=== PATIENT | female | born 1985 | race American Indian/Alaskan Native ===

== ENCOUNTER 2017-06-25 22:52 | Emergency (ER) | payer SELFPAY ==
[2017-06-25 23:22] VITALS: BMI 43.5
[2017-06-25 23:33] VITALS: RESP 18
[2017-06-26] MEDS ORDERED: Oxycodone/Acetaminophen 5/325 mg Tab PO STA (00:03)
--- NOTE | 2017-06-26 00:17 | ED PDOC ---
Arrival/HPI - General Chief Complaint: Back Pain Time Seen by Provider: 06/25/17 23:02 Historian: Patient - History of Present Illness Narrative History of Present Illness (Text): 06/26/17 00:01 31 year old female, whose past medical history includes spinal anesthesia c- section for both her 2 year old and 11 year old children that caused back problems for the past 24 months and also lost feeling on left leg for the last 11 months, presents to the emergency department complaining of worsening pain and states she could not function anymore. Patient said it was due to the spinal anesthesia and was told the feeling would come back which it did not. Patient denies any fever, chills, chest pain, shortness of breath, nausea, vomiting, diarrhea, urinary symptoms, back pain, neck pain, headache, dizziness, or any other complaints. Symptom Onset: Gradual Symptom Course: Worsening Activities at Onset: Light Context: Home Past Medical History - Provider Review Nursing Documentation Reviewed: Yes - Infectious Disease Hx of Infectious Diseases: None - Psychiatric Hx Substance Use: No - Surgical History Hx Section: Yes (5) Family/Social History - Physician Review Nursing Documentation Reviewed: Yes Smoking Status: Never Smoked Hx Alcohol Use: No Hx Substance Use: No Allergies/Home Meds Allergies/Adverse Reactions: Allergies No Known Allergies Allergy (Verified 06/25/17 23:53) Review of Systems - Physician Review All systems were reviewed & negative as marked: Yes - Review of Systems Constitutional: absent: Fevers, Other Respiratory: absent: SOB Cardiovascular: absent: Chest Pain Gastrointestinal: absent: Diarrhea, Nausea, Vomiting Genitourinary Female: absent: Dysuria, Frequency, Hematuria Musculoskeletal: Back Pain, Other (left leg numbness ). absent: Neck Pain Neurological: absent: Headache, Dizziness Physical Exam Vital Signs Reviewed: Yes Vital Signs Temp Pulse Resp BP Pulse Ox 06/25/17 23:28 97.9 F 73 18 127/85 98 Temperature: Afebrile Blood Pressure: Normal Pulse: Regular Respiratory Rate: Normal Appearance: Positive for: Well-Appearing, Non-Toxic, Comfortable Pain Distress: None Mental Status: Positive for: Alert and Oriented X 3 - Systems Exam Head: Present: Atraumatic, Normocephalic Pupils: Present: PERRL Extroacular Muscles: Present: EOMI Conjunctiva: Present: Normal Mouth: Present: Moist Mucous Membranes Neck: Present: Normal Range of Motion Respiratory/Chest: Present: Clear to Auscultation, Good Air Exchange. No: Respiratory Distress, Accessory Muscle Use Cardiovascular: Present: Regular Rate and Rhythm, Normal S1, S2. No: Murmurs Abdomen: No: Tenderness, Distention, Peritoneal Signs Back: Present: Paraspinal Tenderness (Tenderness to the paraspinal musculature) , Other (Tenderness to the saiactic notch on the both sides) Upper Extremity: Present: Normal Inspection. No: Cyanosis, Edema Lower Extremity: Present: Normal Inspection. No: Edema Neurological: Present: GCS=15, CN II-XII Intact, Speech Normal Skin: Present: Warm, Dry, Normal Color. No: Rashes Psychiatric: Present: Alert, Oriented x 3, Normal Insight, Normal Concentration Medical Decision Making ED Course and Treatment: 06/26/17 00:02 Impression: 32 year old female presents complaining of pain to the back for the past 24 months and loss of feeling to the left leg for 11 months. Patient past medical history includes spinal anaesthesia . Plan: -- CT Lumbar spine -- Flexeril, Percocet, Zofran -- Urine Test -- Urinalysis -- Reassess and disposition Progress Notes: EXAM: CT Lumbar Spine Without Intravenous Contrast Dictated and Authenticated by: Gerardo Yadav MD 06/26/2017 1:56 AM MPRESSION: 1. No fracture. 2. If back pain persists, consider MRI for further evaluation. 3. Incidental/non-acute findings are described above. - Lab Interpretations Lab Results: Lab Results 06/26/17 00:45: Urine Color Yellow, Urine Appearance Clear, Urine pH 6.0, Ur Specific [place] >= 1.030, Urine Protein Trace H, Urine Glucose (UA) Negative, Urine Ketones Negative, Urine Blood Negative, Urine Nitrate Negative, Urine Bilirubin Negative, Urine Urobilinogen 0.2, Ur Leukocyte Esterase Negative, Urine RBC 0 - 2, Urine WBC 0 - 2, Ur Epithelial Cells 1 - 3, Urine Bacteria Rare I have reviewed the lab results: Yes - RAD Interpretation Radiology Orders: 06/26/17 00:01 LUMBAR SPINE W/O CONTRAST [CT] Stat - Medication Orders Current Medication Orders: Discontinued Medications Cyclobenzaprine HCl (Flexeril) 10 mg PO STAT STA Stop: 06/26/17 00:04 Last Admin: 06/26/17 00:49 Dose: 10 mg Ondansetron HCl (Zofran Odt) 4 mg PO STAT STA Stop: 06/26/17 00:04 Last Admin: 06/26/17 00:49 Dose: 4 mg Oxycodone/Acetaminophen (Percocet 5/325 Mg Tab) 2 tab PO STAT STA Stop: 06/26/17 00:04 Last Admin: 06/26/17 00:48 Dose: [address] [facility] Pain Assessment Document 06/26/17 00:48 LA (Rec: 06/26/17 00:49 LA [id number]) Pain Reassessment Is this a pain reassessment? No Sleep Is patient sleeping during reassessment? No Presence of Pain Presence of Pain Yes Pain Scale Used Pain Scale Used Numeric Location Pain Location Body Site Back Description Intensity of Pain at present 8 Re-Assess: [facility] Pain Assessment Document 06/26/17 01:48 LA (Rec: 06/26/17 02:43 LA [id number]) Pain Reassessment Is this a pain reassessment? Yes Sleep Is patient sleeping during reassessment? Yes - Scribe Statement The provider has reviewed the documentation as recorded by the Sourav Juarez Provider Scribe Attestation: All medical record entries made by the Leonardibfrankie were at my direction and personally dictated by me. I have reviewed the chart and agree that the record accurately reflects my personal performance of the history, physical exam, medical decision making, and the department course for this patient. I have also personally directed, reviewed, and agree with the discharge instructions and disposition. Disposition/Present on Arrival - Present on Arrival Any Indicators Present on Arrival: No History of DVT/PE: No History of Uncontrolled Diabetes: No Urinary Catheter: No History of Decub. Ulcer: No History Surgical Site Infection Following: None - Disposition Have Diagnosis and Disposition been Completed?: Yes Diagnosis: Lumbar radiculopathy Disposition Time: 02:55 Patient Plan: Discharge Patient Problems: Current Active Problems Problem Status Onset Lumbar radiculopathy Acute Condition: GOOD Discharge Instructions (ExitCare): Radiculopathy (DC) Additional Instructions: Julissa You may need to have back surgery. At the very least you need to see a Neurosurgeon for an evaluation. Please call Dr. Gresham [phone] and get the very next available appointment. Take 800 mg motrin three times a day with food. Flexeril is a muscle relaxant. Take it at night before bed. Ion- Dr. Kwadwo Doss Prescriptions: Cyclobenzaprine [Cyclobenzaprine HCl] 10 mg PO HS #30 tab Ibuprofen [Motrin Tab] 800 mg PO TID #90 tab Referrals: PCP,NO [Primary Care Provider] - Follow up with primary Braydon Gresham MD [Staff Provider] - Follow up with primary Forms: [facility] (Arabic), WORK NOTE, SCHOOL NOTE
[2017-06-26 01:02] LABS: URINE BILIRUBIN NEGATIVE (NEGATIVE); URINE BLOOD NEGATIVE (NEGATIVE); URINE GLUCOSE (UA) NEGATIVE (NEGATIVE); URINE LEUKOCYTE ESTERASE NEGATIVE Leu/uL (NEGATIVE); URINE PROTEIN TRACE mg/dL (<30 mg/dL); URINE UROBILINOGEN 0.2 E.U./dL (<1 E.U./dL)
[2017-06-26 01:12] LABS: URINE APPEARANCE CLEAR (CLEAR); URINE COLOR YELLOW (YELLOW)
[2017-06-26 01:13] LABS: URINE BACTERIA RARE (NEG); URINE RBC 0 - 2 /hpf (0-2); URINE WBC 0 - 2 /hpf (0-6)
--- NOTE | 2017-06-26 01:56 | CT ---
EXAM: CT Lumbar Spine Without Intravenous Contrast CLINICAL HISTORY: 32 years old, female; Pain; Low back pain; Additional info: Left sided radiculopathy, right sided pain TECHNIQUE: Axial computed tomography images of the lumbar spine without intravenous contrast. All CT scans at this facility use one or more dose reduction techniques, viz.: automated exposure control; ma/kV adjustment per patient size (including targeted exams where dose is matched to indication; i.e. head); or iterative reconstruction technique. Coronal and sagittal reformatted images were created and reviewed. COMPARISON: No relevant prior studies available. FINDINGS: Vertebrae: No acute fracture. Degenerative retrolithesis of L5 on S1. Early facet osteoarthrosis within lower lumbar spine. Discs/spinal canal/neural foramina: Mild degenerative disc disease at L5-S1 level. Mild degenerative disc disease within lower thoracic spine. Mild central canal stenosis at L4-L5 level. Neuroforaminal narrowing at L5-S1 level. Soft tissues: Unremarkable. IMPRESSION: 1. No fracture. 2. If back pain persists, consider MRI for further evaluation. 3. Incidental/non-acute findings are described above.
[2017-06-26 03:22] VITALS: BP 130/80; PULSE 78; TEMP 98; O2SAT 99
== END 2017-06-26 03:22 | disposition home or self-care (01) ==
LOC: MERGE 22:52 → ED 22:52
DX: M54.16 Radiculopathy, lumbar region (principal)

== ENCOUNTER 2017-07-27 00:11 | Emergency (ER) | payer SELFPAY ==
[2017-07-27 00:11] VITALS: BMI 47.6
[2017-07-27 00:36] VITALS: TEMP 97.7
[2017-07-27 01:59] LABS: BASO # 0.01 K/mm3 (0.0-2.0); BASO % 0.1 % (0.0-3.0); EOS # 0.1 (0.0-0.7); EOS % 0.7 % (1.5-5.0); GRAN # 4.77 (1.4-6.5); GRAN % 59.1 % (50.0-68.0); HEMOGLOBIN 11.7 g/dL (12.0-16.0); LYMPH # 2.7 (1.2-3.4); LYMPH % 33.4 % (22.0-35.0); MEAN CELL VOLUME 85.5 fl (80.0-105.0); MEAN CORPUSCULAR HEMOGLOBIN 28.3 pg (25.0-35.0); MEAN CORPUSCULAR HGB CONC 33.1 g/dl (31.0-37.0); MEAN PLATELET VOLUME 9.7 fl (7.0-11.0); MONO # 0.5 (0.1-0.6); MONO % 6.7 % (1.0-6.0); RBC 4.13 10^6/uL (3.5-6.1); RED CELL DISTRIBUTION WIDTH 12.8 % (11.5-14.5); WHITE BLOOD COUNT 8.1 10^3/ul (4.5-11.0)
[2017-07-27 02:14] LABS: URINE BILIRUBIN NEGATIVE (NEGATIVE); URINE BLOOD NEGATIVE (NEGATIVE); URINE GLUCOSE (UA) NEGATIVE (NEGATIVE); URINE LEUKOCYTE ESTERASE NEGATIVE Leu/uL (NEGATIVE); URINE PROTEIN TRACE mg/dL (<30 mg/dL)
[2017-07-27 02:16] LABS: URINE APPEARANCE CLEAR (CLEAR); URINE COLOR YELLOW (YELLOW)
[2017-07-27 02:25] LABS: ALB/GLOB RATIO 1.3 (1.1-1.8); ALBUMIN 4.2 g/dL (3.0-4.8); ALT/SGPT 36 U/L (7-56); AST/SGOT 19 U/L (14-36); BLOOD UREA NITROGEN 10 mg/dL (7-21); CALCIUM 9.3 mg/dL (8.4-10.5); GFR AFRICAN-AMERICAN > 60; GFR NON-AFRICAN AMERICAN > 60; URINE BACTERIA RARE (NEG); URINE EPITHELIAL CELLS 0 - 2 /hpf (0-5); URINE RBC 0 - 2 /hpf (0-2); URINE WBC 0 - 2 /hpf (0-6)
[2017-07-27 02:36] LABS: TROPONIN I < 0.01 ng/mL
--- NOTE | 2017-07-27 03:26 | ED PDOC ---
Arrival/HPI - General Time Seen by Provider: 07/27/17 00:15 Historian: Patient - History of Present Illness Narrative History of Present Illness (Text): 07/27/17 06:36 Patient is a 32 F with a history of chronic back pain who presents with complaints of general pain starting from neck which radiates down back. Describes pain as dull rating it a 7/10 with exacerbation with movement. Patient states the regions on her body where she feels the pain is tender upon palpation. Patient denies fevers, chills, abdominal pain, nausea, vomiting, diarrhea, chest pain, palpitations. Time/Duration: Prior to Arrival, > week Symptom Onset: Gradual Symptom Course: Unchanged, Worsening Quality: Aching Severity Level: 9 Past Medical History - Provider Review Nursing Documentation Reviewed: Yes - Infectious Disease Hx of Infectious Diseases: None - Psychiatric Hx Substance Use: No - Surgical History Hx Section: Yes (x3) - Suicidal Assessment Feels Threatened In Home Enviroment: No Family/Social History - Physician Review Nursing Documentation Reviewed: Yes Family/Social History: Hypertension Smoking Status: Never Smoked Hx Alcohol Use: No Hx Substance Use: No Allergies/Home Meds Allergies/Adverse Reactions: Allergies No Known Allergies Allergy (Verified 02/21/14 17:26) Review of Systems - Review of Systems Constitutional: Normal Eyes: Normal ENT: Normal Respiratory: Normal Cardiovascular: Normal Gastrointestinal: Normal Genitourinary Female: Normal Musculoskeletal: Back Pain, Neck Pain, Myalgias. absent: Normal Skin: Normal Neurological: Normal. absent: Headache, Dizziness, Focal Weakness Endocrine: Normal Hemo/Lymphatic: Normal Psychiatric: Normal Physical Exam Vital Signs Reviewed: Yes Vital Signs Temp Pulse Resp BP Pulse Ox 07/27/17 00:34 97.7 F 69 17 143/94 H 98 Temperature: Afebrile Blood Pressure: Normal Pulse: Regular Respiratory Rate: Normal Appearance: Positive for: Well-Appearing, Non-Toxic, Comfortable Pain Distress: None Mental Status: Positive for: Alert and Oriented X 3 - Systems Exam Head: Present: Atraumatic, Normocephalic Pupils: Present: PERRL Extroacular Muscles: Present: EOMI Conjunctiva: Present: Normal Mouth: Present: Moist Mucous Membranes Neck: Present: Normal Range of Motion Respiratory/Chest: Present: Clear to Auscultation. No: Wheezes, Rhonchi Cardiovascular: Present: Regular Rate and Rhythm, Normal S1, S2 Abdomen: Present: Normal Bowel Sounds. No: Tenderness Upper Extremity: Present: Normal Inspection. No: Edema Lower Extremity: Present: Normal Inspection. No: Edema Neurological: Present: GCS=15, CN II-XII Intact, Speech Normal Skin: Present: Warm, Normal Color Psychiatric: Present: Alert, Oriented x 3, Normal Insight, Normal Concentration Medical Decision Making ED Course and Treatment: 07/27/17 03:36 CBC, CMP, Trop, EKG, Flexeril CXR-Bilateral lymphadenopathy? Will order CT chest w/ contrast 07/27/17 06:41 CT FINDINGS: Lungs: Mild parabronchial cuffing, with mild patchy haziness in the lung bases which can be seen with bronchitis, reactive airway disease or viral pneumonitis versus mild failure. Pleural space: Unremarkable. No pneumothorax. No significant effusion. Heart: Unremarkable. No cardiomegaly. No significant pericardial effusion. Mediastinum: Possible small sliding hiatal hernia. Bones/joints: Unremarkable. No acute fracture. No dislocation. Soft tissues: Unremarkable. Vasculature: Unremarkable. No thoracic aortic aneurysm. Lymph nodes: Unremarkable. No enlarged lymph nodes. Adrenals: Incompletely seen adrenal glands. Stomach and bowel: Nonspecific gastric thickening likely due to under distention. Correlation with clinical data is recommended if gastritis is suspected. Diverticulosis. Mild parabronchial cuffing, with mild patchy haziness in the lung bases which can be seen with bronchitis, reactive airway disease or viral pneumonitis versus mild failure. Will discharge with antibiotics and steroids. Re-evaluation Time: 03:20 Reassessment Condition: Re-examined, Improving,but remains with symptoms - Lab Interpretations Lab Results: 07/27/17 01:40 07/27/17 01:40 Lab Results 07/27/17 01:40: Urine Color Yellow, Urine Appearance Clear, Urine pH 6.0, Ur Specific [place] >= 1.030, Urine Protein Trace H, Urine Glucose (UA) Negative, Urine Ketones Negative, Urine Blood Negative, Urine Nitrate Negative, Urine Bilirubin Negative, Urine Urobilinogen 1.0 H, Ur Leukocyte Esterase Negative, Urine RBC 0 - 2, Urine WBC 0 - 2, Ur Epithelial Cells 0 - 2, Urine Bacteria Rare , Urine Other Mucus 07/27/17 01:40: Sodium 143, Potassium 4.0, Chloride 103, Carbon Dioxide 27, Anion Gap 17, BUN 10, Creatinine 0.7, Est GFR ( Amer) > 60, Est GFR (Non- Af Amer) > 60, Random Glucose 92, Calcium 9.3, Magnesium 1.9, Total Bilirubin 0.5, AST 19, ALT 36, Alkaline Phosphatase 55, Troponin I < 0.01, Total Protein 7.5, Albumin 4.2, Globulin 3.3, Albumin/Globulin Ratio 1.3 07/27/17 01:40: WBC 8.1, RBC 4.13, Hgb 11.7 L, Hct 35.3 L, MCV 85.5, MCH 28.3, MCHC 33.1, RDW 12.8, Plt Count 252, MPV 9.7, Gran % 59.1, Lymph % (Auto) 33.4, [place] % (Auto) 6.7 H, Eos % (Auto) 0.7 L, Baso % (Auto) 0.1, Gran # 4.77, Lymph # (Auto) 2.7, Forrest # (Auto) 0.5, Eos # (Auto) 0.1, Baso # (Auto) 0.01 I have reviewed the lab results: Yes Interpretation: All labs normal - RAD Interpretation Radiology Orders: 07/27/17 00:52 CHEST TWO VIEWS (PA/LAT) [RAD] Stat 07/27/17 03:58 CHEST W/CONTRAST [CT] Stat Commission Auditor: ED Physician - EKG Interpretation Interpreted by ED Physician: Yes Type: 12 lead EKG - Medication Orders Current Medication Orders: Discontinued Medications Cyclobenzaprine HCl (Flexeril) 10 mg PO STAT STA Stop: 07/27/17 00:52 Last Admin: 07/27/17 02:00 Dose: 10 mg Disposition/Present on Arrival - Present on Arrival Any Indicators Present on Arrival: No History of DVT/PE: No History of Uncontrolled Diabetes: No Urinary Catheter: No History of Decub. Ulcer: No History Surgical Site Infection Following: None - Disposition Have Diagnosis and Disposition been Completed?: Yes Diagnosis: Bronchitis Disposition: HOME/ ROUTINE Disposition Time: 07:00 Patient Plan: Discharge Condition: GOOD Discharge Instructions (ExitCare): Acute Bronchitis, Adult (DC) Additional Instructions: Ms. Bryan, thank you for letting us take care of you today. The emergency medical care you received today was directed at your acute symptoms. If you were prescribed any medication, please fill it and take as directed. It may take several days for your symptoms to resolve. Return to the Emergency Department if your symptoms worsen, do not improve, or if you have any other problems. Please contact your doctor or call one of the physicians/clinics you have been referred to that are listed on the Patient Visit Information form that is included in your discharge packet. Bring any paperwork you were given at discharge with you along with any medications you are taking to your follow up visit. Our treatment cannot replace ongoing medical care by a primary care provider (PCP) outside of the emergency department. Thank you for allowing the [facility] team to be part of your care today. If you had an X-Ray or CT scan: A Radiologist will review the ED reading if any change in treatment is needed we will contact you. If you had a blood, urine, or wound culture: It will take several days for the results, if any change in treatment is needed we will contact you. If you had an STI test: It will take 48 hours for the results. Please call after 1 week if you have not heard back. Prescriptions: Azithromycin [Z-Ke] 250 mg PO DAILY #6 tab Prednisone [Deltasone] 20 mg PO BID #10 tablet
[2017-07-27] MEDS ORDERED: Iohexol 350 MG/100 ML VIAL ONE (04:07)
--- NOTE | 2017-07-27 05:40 | CT ---
EXAM: CT Chest With Intravenous Contrast CLINICAL HISTORY: 32 years old, female; Signs and symptoms; Other: Tightness; Additional info: Chest tightness TECHNIQUE: Axial computed tomography images of the chest with intravenous contrast. All CT scans at this facility use one or more dose reduction techniques, viz.: automated exposure control; ma/kV adjustment per patient size (including targeted exams where dose is matched to indication; i.e. head); or iterative reconstruction technique. 535 images are submitted. Axial images are submitted in mediastinal and lung windows. Coronal and sagittal reformatted images were created and reviewed. CONTRAST: 96 mL of OMNI 350 administered intravenously. COMPARISON: DX - CHEST TWO VIEWS (PA/LAT) 2017-07-27 02:46 FINDINGS: Lungs: Mild parabronchial cuffing, with mild patchy haziness in the lung bases which can be seen with bronchitis, reactive airway disease or viral pneumonitis versus mild failure. Pleural space: Unremarkable. No pneumothorax. No significant effusion. Heart: Unremarkable. No cardiomegaly. No significant pericardial effusion. Mediastinum: Possible small sliding hiatal hernia. Bones/joints: Unremarkable. No acute fracture. No dislocation. Soft tissues: Unremarkable. Vasculature: Unremarkable. No thoracic aortic aneurysm. Lymph nodes: Unremarkable. No enlarged lymph nodes. Adrenals: Incompletely seen adrenal glands. Stomach and bowel: Nonspecific gastric thickening likely due to under distention. Correlation with clinical data is recommended if gastritis is suspected. Diverticulosis. IMPRESSION: Mild parabronchial cuffing, with mild patchy haziness in the lung bases which can be seen with bronchitis, reactive airway disease or viral pneumonitis versus mild failure.
--- NOTE | 2017-07-27 08:34 | RAD ---
HISTORY: All 1 chest tightness. COMPARISON: July 27, 2017. CT thorax TECHNIQUE: Chest PA and lateral FINDINGS: LUNGS: Prominent pulmonary markings compatible with lower airways disease, bronchitis. No discrete infiltrates PLEURA: No significant pleural effusion identified. No pneumothorax apparent. CARDIOVASCULAR: Normal. OSSEOUS STRUCTURES: No significant abnormalities. VISUALIZED UPPER ABDOMEN: Normal. OTHER FINDINGS: None. IMPRESSION: Increased interstitial markings compatible with lower airways disease. No discrete pulmonary infiltrates.
[2017-07-27 08:40] VITALS: BP 146/74; PULSE 88; RESP 16; O2SAT 100
--- NOTE | 2017-07-27 18:59 | CARD ---
APPROVED REPORT EKG Measurement Heart [id number] <Conclusion> Sinus rhythm with 1st degree AV block Possible Left atrial enlargement Borderline ECG
== END 2017-07-27 06:55 | disposition home or self-care (01) ==
LOC: ED 00:11
DX: J40 Bronchitis, not specified as acute or chronic (principal)
CPT/HCPCS: 71046; 71260; 80053; 81001; 83735; 84484; 85025; 93005; 99283; Q9967